=== PATIENT | female | born 1960 | race Caucasian/White ===

== ENCOUNTER → 2017-05-17 | Outpatient (CLI) | payer BC ==
[2017-05-17 09:36] LABS: ALBUMIN 3.8 gm/dL (3.5-5.0); ALK PHOS 63 IU/L (33-138); ALT 29 IU/L (12-78); AST 17 IU/L (10-40); TOTAL BILIRUBIN 0.5 mg/dL (0.0-1.5); TOTAL PROTEIN 7.4 g/dL (6.0-8.4)
== END | disposition disaster alternative care site (69) ==
LOC: LNHI 09:19
PROVIDERS: Internal Medicine Interventional Cardiology
DX: I10 Essential (primary) hypertension (principal); I48.0 Paroxysmal atrial fibrillation; R00.2 Palpitations